=== PATIENT | female | born 1975 | race Caucasian/White ===

== ENCOUNTER 2017-07-02 18:42 | Emergency (ER) | payer MEDICAID ==
[~2017-07-02] VITALS: Ht 162.6 cm; Wt 76.2 kg
[2017-07-02 19:24] VITALS: Ht 162.6 cm; Wt 76.2 kg
[2017-07-03 00:42] VITALS: BP 111/71
== END 2017-07-03 00:42 | disposition home or self-care (01) ==
LOC: ED 18:42
DX: M62.830 Muscle spasm of back (principal); Z88.6 Allergy status to analgesic agent